=== PATIENT | female | born 1995 | race African-American/Black ===

== ENCOUNTER 2024-02-10 14:22 | Emergency (ER) | payer MEDICAID ==
[~2024-02-10] VITALS: Ht 152.4 cm; Wt 79.4 kg
[2024-02-10 15:07] VITALS: TEMP 98.6
[2024-02-10] MEDS ORDERED: PHENOBARBITAL SODIUM 130 MG/ML VIAL IV ONE (18:30)
[2024-02-10] MEDS ORDERED: ONDANSETRON HCL/PF 4 MG/2 ML VIAL ONE (18:36)
[2024-02-10] MEDS: ONDANSETRON HCL/PF - ER 4 MG/2 ML VIAL IV ONE (18:45)
[2024-02-10] MEDS: IV NS 0.9% 1,000 ML BAG IV ONE (18:45)
[2024-02-10] MEDS ORDERED: PHENOBARBITAL SODIUM 130 MG/ML VIAL ONE (18:51)
[2024-02-10] MEDS ORDERED: PHENOBARBITAL SODIUM 780 MG in IV NS 0.9% 100 ML IV ONE (19:00)
[2024-02-10] MEDS: PHENOBARBITAL SODIUM 780 MG in IV NS 0.9% 94 ML IV ONE (19:46)
[2024-02-10] MEDS ORDERED: CHLO25CA22 PO (20:40)
[2024-02-10] MEDS ORDERED: ONDA4TAB11 PO (20:40)
[2024-02-10 21:03] VITALS: BP 121/62; O2SAT 100
== END 2024-02-10 21:04 | disposition home or self-care (01) ==
LOC: ER 14:28
DX: F10.239 Alcohol dependence with withdrawal, unspecified (principal); R11.2 Nausea with vomiting, unspecified; Y90.9 Presence of alcohol in blood, level not specified
CPT/HCPCS: 99284; 96365; 96361; 96375; J2560; J2405 ×2; J7030 ×2; J7040; A4223

== ENCOUNTER 2024-02-24 16:22 | Emergency (ER) | payer MEDICAID ==
[~2024-02-24] VITALS: Ht 152.4 cm; Wt 68.0 kg
[~2024-02-24 16:22] MED LIST: CHLO25CA22 PO; ONDA4TAB11 PO
[2024-02-24 16:37] VITALS: TEMP 99
[2024-02-24] MEDS: NS 0.9% IV ONE (17:52)
[2024-02-24] MEDS: PHENOBARBITAL SODIUM IV ONE (17:52)
[2024-02-24 19:47] VITALS: BP 110/60; O2SAT 98
== END 2024-02-24 19:47 | disposition home or self-care (01) ==
LOC: ER 16:30
DX: F10.239 Alcohol dependence with withdrawal, unspecified (principal); F41.9 Anxiety disorder, unspecified; R25.1 Tremor, unspecified; Z79.899 Other long term (current) drug therapy
CPT/HCPCS: 99284; 96365; J2560; J7030; J7040

== ENCOUNTER 2024-03-17 12:08 | Emergency (ER) | payer MEDICAID ==
[~2024-03-17] VITALS: Ht 152.4 cm; Wt 66.7 kg
[2024-03-17] MEDS ORDERED: LORAZEPAM INJ 2 MG/ML VIAL ONE (12:28)
[2024-03-17] MEDS: IV NS 0.9% 1,000 ML BAG IV ONE (12:32)
[2024-03-17] MEDS: LORAZEPAM INJ 2 MG/ML VIAL IV ONE (12:32)
[2024-03-17 13:19] LABS: BASOPHILS % (AUTO) 0.6 % (0.0-2.0); EOSINOPHILS % (AUTO) 0.4 % (0.0-6.0); HEMATOCRIT 44 % (33-45); HEMOGLOBIN 14.1 g/dL (11.5-14.8); LYMPHOCYTES % (AUTO) 24.1 % (20.0-44.0); MEAN CORPUSCULAR HEMOGLOBIN 24 PG (26.0-33.0); MEAN CORPUSCULAR HGB CONC 32 g/dl (31.0-36.0); MEAN CORPUSCULAR VOLUME 74 fL (82-100); MONOCYTES # (AUTO) 0.4 K/uL (0.1-1.30); MONOCYTES % (AUTO) 9.7 % (2.0-12.0); NEUTROPHILS # (AUTO) 2.7 K/uL (1.8-8.9); NEUTROPHILS % (AUTO) 65.2 % (43.0-81.0); PLATELET COUNT (AUTO) 331 K/uL (150-450); RED CELL DISTRIBUTION WIDTH 19.4 % (11.5-15.0); WHITE BLOOD COUNT (AUTO) 4.1 K/uL (4.3-11.0)
[2024-03-17 13:22] LABS: CALCIUM, SERUM 9.8 mg/dL (8.5-10.1); POTASSIUM 4.2 mmol/L (3.5-5.1)
[2024-03-17 13:25] LABS: PREGNANCY TEST URINE QUAL NEGATIVE (NEGATIVE)
[2024-03-17] MEDS ORDERED: ONDA4TAB5 PO (13:42)
[2024-03-17 14:48] VITALS: BP 143/72; TEMP 98.4; O2SAT 99
== END 2024-03-17 14:48 | disposition home or self-care (01) ==
LOC: ER 12:08
DX: F10.129 Alcohol abuse with intoxication, unspecified (principal); E86.0 Dehydration; R10.2 Pelvic and perineal pain; Z79.899 Other long term (current) drug therapy; Z60.2 Problems related to living alone; Y90.0 Blood alcohol level of less than 20 mg/100 ml
CPT/HCPCS: 99284; 96374; 96361; 93005; 85025; 80048; 84703; 36415; J2060; J7040

== ENCOUNTER 2024-04-26 14:29 | Inpatient (IN) | payer MEDICAID ==
[~2024-04-26] VITALS: Ht 152.4 cm; Wt 52.2 kg
[~2024-04-26 14:29] MED LIST changes: +ONDA4TAB5 PO
[2024-04-26] MEDS ORDERED: LORAZEPAM INJ 2 MG/ML VIAL ONE (15:54)
[2024-04-26] MEDS ORDERED: ONDANSETRON HCL/PF 4 MG/2 ML VIAL ONE (15:55)
[2024-04-26] MEDS ORDERED: FAMOTIDINE/PF INJ 20 MG/2 ML VIAL IV ONE (15:55)
[2024-04-26 16:02] LABS: BASOPHILS # (AUTO) 0.1 K/uL (0.0-0.2); BASOPHILS % (AUTO) 1.4 % (0.0-2.0); EOSINOPHILS % (AUTO) 0.1 % (0.0-6.0); HEMATOCRIT 45 % (33-45); HEMOGLOBIN 14.1 g/dL (11.5-14.8); LYMPHOCYTES # (AUTO) 0.9 K/uL (0.8-4.8); LYMPHOCYTES % (AUTO) 10.4 % (20.0-44.0); MEAN CORPUSCULAR HEMOGLOBIN 24 PG (26.0-33.0); MEAN CORPUSCULAR HGB CONC 31 g/dl (31.0-36.0); MEAN CORPUSCULAR VOLUME 78 fL (82-100); MONOCYTES # (AUTO) 0.7 K/uL (0.1-1.30); MONOCYTES % (AUTO) 8.1 % (2.0-12.0); NEUTROPHILS # (AUTO) 6.6 K/uL (1.8-8.9); PLATELET COUNT (AUTO) 349 K/uL (150-450); RED CELL DISTRIBUTION WIDTH 18.8 % (11.5-15.0); WHITE BLOOD COUNT (AUTO) 8.3 K/uL (4.3-11.0)
[2024-04-26] MEDS: IV NS 0.9% 1,000 ML BAG IV ONE (16:03)
[2024-04-26] MEDS: ONDANSETRON HCL/PF 4 MG/2 ML VIAL IVP ONE (16:04)
[2024-04-26] MEDS: LORAZEPAM INJ 2 MG/ML VIAL IV ONE (16:05)
[2024-04-26] MEDS: FAMOTIDINE/PF INJ 20 MG/2 ML VIAL IV ONE (16:05)
[2024-04-26 16:10] LABS: CREATININE 1.3 mg/dL (0.6-1.3)
[2024-04-26 16:16] LABS: ALBUMIN 4.7 g/dL (3.4-5.0); BILIRUBIN,DIRECT 0.3 mg/dL (0.0-0.2); BILIRUBIN,TOTAL 0.6 mg/dL (0.2-1.0); TOTAL PROTEIN, SERUM 9.7 g/dL (6.4-8.2)
[2024-04-26] MEDS ORDERED: HYDR-500 PO (17:50)
[2024-04-26] MEDS ORDERED: SERT25TA PO (17:50)
[2024-04-26] MEDS ORDERED: MAGNESIUM HYDROXIDE 30 ML UDC PO PRN (18:00)
[2024-04-26] MEDS ORDERED: MAG HYDROX/AL HYDROX/SIMETH 30 ML UDC PO PRN (18:00)
[2024-04-26] MEDS ORDERED: Z GUARD REMEDY 4 OZ OINT TP PRN (18:00)
[2024-04-26] MEDS: Thiamine 100 MG in IV D5W 50 ML IV SCH (18:00)
[2024-04-26] MEDS ORDERED: MAG HYDROX/AL HYDROX/SIMETH 30 ML UDC ONE (18:05)
[2024-04-26] MEDS ORDERED: FOLIC ACID 1 MG TABLET ONE (18:06)
[2024-04-26] MEDS ORDERED: THIAMINE HCL 100 MG TABLET ONE (18:06)
[2024-04-26] MEDS ORDERED: LIDOCAINE VISCOUS 2% UD 15 ML UDC ONE (18:06)
[2024-04-26] MEDS: MAG HYDROX/AL HYDROX/SIMETH 30 ML UDC PO ONE (18:08)
[2024-04-26] MEDS: LIDOCAINE VISCOUS 2% UD 15 ML UDC MM ONE (18:08)
[2024-04-26] MEDS: FOLIC ACID 1 MG TABLET PO ONE (18:08)
[2024-04-26] MEDS: THIAMINE HCL 100 MG TABLET PO ONE (18:08)
[2024-04-26] MEDS ORDERED: PANTOPRAZOLE 40 MG VIAL ONE (18:53)
[2024-04-26] MEDS: PANTOPRAZOLE 40 MG VIAL IV SCH (18:59)
[2024-04-26] MEDS ORDERED: MORPHINE SULFATE INJ 4 MG/ML DISP.SYRIN ONE (21:28)
[2024-04-26] MEDS: MORPHINE SULFATE INJ 2 MG/ML DISP.SYRIN IV ONE (21:30)
[2024-04-26 23:00] VITALS: BP 126/56; TEMP 97.7; O2SAT 98
[2024-04-27] MEDS: IV NS 0.9% 1,000 ML IV PRN
[2024-04-27] MEDS: ONDANSETRON HCL/PF 4 MG/2 ML VIAL IVP PRN (00:01)
[2024-04-27] MEDS: FOLIC ACID 1 MG TABLET ONE (01:02)
[2024-04-27] MEDS: MORPHINE SULFATE INJ 2 MG/ML DISP.SYRIN IV PRN (01:29)
[2024-04-27 04:00] VITALS: BP 118/65; TEMP 97.7; O2SAT 100
[2024-04-27] MEDS: CHLORDIAZEPOXIDE HCL 25 MG CAPSULE PO PRN (04:53)
[2024-04-27 07:23] LABS: BASOPHILS % (AUTO) 0.1 % (0.0-2.0); HEMATOCRIT 43 % (33-45); HEMOGLOBIN 13.7 g/dL (11.5-14.8); LYMPHOCYTES # (AUTO) 0.4 K/uL (0.8-4.8); MEAN CORPUSCULAR HEMOGLOBIN 25 PG (26.0-33.0); MEAN CORPUSCULAR HGB CONC 32 g/dl (31.0-36.0); MEAN CORPUSCULAR VOLUME 79 fL (82-100); MONOCYTES # (AUTO) 0.8 K/uL (0.1-1.30); MONOCYTES % (AUTO) 7.5 % (2.0-12.0); NEUTROPHILS # (AUTO) 9.7 K/uL (1.8-8.9); NEUTROPHILS % (AUTO) 88.4 % (43.0-81.0); PLATELET COUNT (AUTO) 229 K/uL (150-450); RED CELL DISTRIBUTION WIDTH 18.9 % (11.5-15.0)
[2024-04-27 07:39] LABS: CALCIUM, SERUM 8.9 mg/dL (8.5-10.1); CARBON DIOXIDE 16 mmol/L (21-32); CHLORIDE 101 mmol/L (98-107); GLUCOSE 131 mg/dL (74-106); MAGNESIUM 1.7 mg/dL (1.8-2.4); PHOSPHORUS 2.8 mg/dL (2.5-4.9); POTASSIUM 4.6 mmol/L (3.5-5.1); SODIUM SERUM 136 mmol/L (136-145); UREA NITROGEN, BLOOD 6 mg/dL (7-18)
[2024-04-27 07:43] LABS: LIPASE > 375 U/L (16-77)
[2024-04-27 08:00] VITALS: BP 135/85; TEMP 97.7; O2SAT 97
[2024-04-27] MEDS: Magnesium 1GM/D5W 100ML PREMIX 100 ML IV SCH (10:17)
[2024-04-27] MEDS ORDERED: Magnesium 1GM/D5W 100ML PREMIX 100 ML IV SCH (11:00)
[2024-04-27 16:00] VITALS: BP 123/92; TEMP 97.9; O2SAT 100
[2024-04-27] MEDS: THIAMINE HCL 100 MG TABLET PO SCH (17:24)
[2024-04-27 20:00] VITALS: BP 132/79; TEMP 99; O2SAT 100
[2024-04-27] MEDS: ACETAMINOPHEN 325 MG TABLET PO PRN (22:13)
== END 2024-04-27 23:58 | disposition left against medical advice (07) | DRG 282 ==
LOC: ER 14:36 → MEDSG1 21:44
PROVIDERS: ADMIT Nurse Practitioner Acute Care; ATTEND Nurse Practitioner Acute Care
DX: K85.90 Acute pancreatitis without necrosis or infection, unspecified (principal); E87.29 Other acidosis; F19.10 Other psychoactive substance abuse, uncomplicated; R74.01 Elevation of levels of liver transaminase levels; F10.20 Alcohol dependence, uncomplicated
CPT/HCPCS: 36415; 80048-TC; 80076-TC; 83690-TC; 83735-TC; 84100-TC; 84702-TC; 85025-TC; A4223; G0378; J2060; J2270; J2405; J2470; J3411; J3475; J3490; J7030; J7060

== ENCOUNTER → 2024-04-29 | Emergency (ER) | payer MEDICAID ==
[~2024-04-29] VITALS: Ht 152.4 cm; Wt 61.7 kg
[~2024-04-29] MED LIST changes: +ACETAMINOPHEN ES 500 MG TABLET ONE; +CEPH500C2 PO; -CHLO25CA22 PO; +FAMOTIDINE/PF INJ 20 MG/2 ML VIAL IV ONE; +HYDR-500 PO; +MAG HYDROX/AL HYDROX/SIMETH 30 ML UDC ONE; +MORPHINE SULFATE INJ 4 MG/ML DISP.SYRIN ONE; -ONDA4TAB5 PO; +ONDANSETRON HCL/PF 4 MG/2 ML VIAL ONE; +SERT25TA PO; +TRAM50TA2 PO
[2024-04-29] MEDS: MAG HYDROX/AL HYDROX/SIMETH 30 ML UDC PO ONE (10:03)
[2024-04-29] MEDS: ACETAMINOPHEN ES 500 MG TABLET PO ONE (10:03)
[2024-04-29] MEDS: IV NS 0.9% 1,000 ML BAG IV ONE ×2 (10:10→11:00)
[2024-04-29] MEDS: ONDANSETRON HCL/PF 4 MG/2 ML VIAL IVP ONE (10:21)
[2024-04-29] MEDS: FAMOTIDINE/PF INJ 20 MG/2 ML VIAL IV ONE (10:21)
[2024-04-29 10:41] LABS: BASOPHILS % (AUTO) 0.3 % (0.0-2.0); HEMATOCRIT 39 % (33-45); HEMOGLOBIN 12.3 g/dL (11.5-14.8); LYMPHOCYTES # (AUTO) 0.8 K/uL (0.8-4.8); LYMPHOCYTES % (AUTO) 8.7 % (20.0-44.0); MEAN CORPUSCULAR HEMOGLOBIN 25 PG (26.0-33.0); MEAN CORPUSCULAR HGB CONC 32 g/dl (31.0-36.0); MEAN CORPUSCULAR VOLUME 78 fL (82-100); MONOCYTES # (AUTO) 0.8 K/uL (0.1-1.30); MONOCYTES % (AUTO) 8.4 % (2.0-12.0); NEUTROPHILS # (AUTO) 7.6 K/uL (1.8-8.9); NEUTROPHILS % (AUTO) 82.6 % (43.0-81.0); PLATELET COUNT (AUTO) 141 K/uL (150-450); RED BLOOD CELL COUNT(AUTO) 4.97 MIL/uL (4.0-5.2); RED CELL DISTRIBUTION WIDTH 18.4 % (11.5-15.0); WHITE BLOOD COUNT (AUTO) 9.2 K/uL (4.3-11.0)
[2024-04-29 10:47] LABS: APPEARANCE,URINE CLEAR (CLEAR); BILIRUBIN,URINE 1+ (NEGATIVE); BLOOD, URINE 2+ Ery/uL (NEGATIVE); COLOR,URINE YELLOW (YELLOW); KETONES,URINE 3+ mg/dL (NEGATIVE); LEUKOCYTE ESTERASE ,URINE NEGATIVE (NEGATIVE); NITRITE, URINE POSITIVE (NEGATIVE); PH,URINE 6.5 (5.0-8.0); PROTEIN,URINE 2+ mg/dl (NEGATIVE); UGLUCOSE NEGATIVE (NEGATIVE)
[2024-04-29 10:58] LABS: CALCIUM, SERUM 9.1 mg/dL (8.5-10.1); CARBON DIOXIDE 21 mmol/L (21-32); CHLORIDE 96 mmol/L (98-107); CREATININE 0.7 mg/dL (0.6-1.3); GLUCOSE 118 mg/dL (74-106); POTASSIUM 3.2 mmol/L (3.5-5.1); SODIUM SERUM 135 mmol/L (136-145); UREA NITROGEN, BLOOD 5 mg/dL (7-18)
[2024-04-29 11:01] LABS: ADD URINE CULTURE YES; BACTERIA,URINE Many /HPF (None Seen); HYALINE CASTS, URINE Few /LPF (None Seen); MUCUS,URINE Many /LPF (None Seen); TRICHOMONAS,URINE None Seen /HPF (None Seen); YEAST,URINE None Seen /HPF (None Seen)
[2024-04-29 11:02] LABS: PREGNANCY TEST URINE QUAL NEGATIVE (NEGATIVE)
[2024-04-29 11:06] LABS: ALANINE AMINOTRANSFERASE 73 U/L (12-78); ALBUMIN 3.2 g/dL (3.4-5.0); ALKALINE PHOSPHATASE 74 U/L (46-116); ASPARTATE AMINOTRANSFERASE 71 U/L (15-37); BILIRUBIN,DIRECT 0.5 mg/dL (0.0-0.2); BILIRUBIN,TOTAL 0.9 mg/dL (0.2-1.0); TOTAL PROTEIN, SERUM 7.8 g/dL (6.4-8.2)
[2024-04-29 11:13] LABS: LIPASE > 375 U/L (16-77)
[2024-04-29 11:22] LABS: ANISOCYTOSIS 1+; HYPOCHROMASIA 1+; LYMPHOCYTES % (MANUAL) 11 % (16-48); MONOCYTES % (MANUAL) 9 % (0-11.0); NEUTROPHILS % (MANUAL) 80 (42-76); PLATELET ESTIMATE DECREASED
[2024-04-29] MEDS: CEFTRIAXONE 1GM BAG (ER ONLY) 1 GM/50 ML PIGGYBACK IV ONE (11:45)
[2024-04-29] MEDS: ONDANSETRON HCL/PF - ER 4 MG/2 ML VIAL IV ONE (11:46)
[2024-04-29] MEDS: MORPHINE SULFATE INJ 2 MG/ML DISP.SYRIN IV ONE (11:55)
[2024-04-29 13:07] VITALS: BP 120/89; TEMP 98.2; O2SAT 98
== END | disposition home or self-care (01) ==
LOC: ER 08:29
DX: K85.20 Alcohol induced acute pancreatitis without necrosis or infection (principal); R10.13 Epigastric pain; M54.9 Dorsalgia, unspecified; R11.2 Nausea with vomiting, unspecified; N39.0 Urinary tract infection, site not specified; R31.9 Hematuria, unspecified; F10.10 Alcohol abuse, uncomplicated; F41.9 Anxiety disorder, unspecified; F19.10 Other psychoactive substance abuse, uncomplicated; Z60.2 Problems related to living alone; Y90.9 Presence of alcohol in blood, level not specified
CPT/HCPCS: 99284; 96365; 96361 ×2; 96375 ×3; 96376; 85025; 80048; 87086; 83690; 80076; 84703; 81001; 36415; 85007; J2270; J3490; J2405 ×2; J0696

== ENCOUNTER 2025-03-18 23:28 | Emergency (ER) | payer MEDICAID, OTHER ==
[~2025-03-18] VITALS: Ht 162.6 cm; Wt 70.3 kg
[~2025-03-18 23:28] MED LIST changes: -ACETAMINOPHEN ES 500 MG TABLET ONE; -FAMOTIDINE/PF INJ 20 MG/2 ML VIAL IV ONE; -MAG HYDROX/AL HYDROX/SIMETH 30 ML UDC ONE; -MORPHINE SULFATE INJ 4 MG/ML DISP.SYRIN ONE; -ONDANSETRON HCL/PF 4 MG/2 ML VIAL ONE
[2025-03-19 01:15] VITALS: BP 120/70; TEMP 99.1; O2SAT 98
== END 2025-03-19 01:16 | disposition left against medical advice (07) ==
LOC: EDUNIT# 23:28 → ER 23:31
DX: F10.939 Alcohol use, unspecified with withdrawal, unspecified (principal); R11.2 Nausea with vomiting, unspecified; F41.9 Anxiety disorder, unspecified; Z79.899 Other long term (current) drug therapy; Z87.19 Personal history of other diseases of the digestive system; Z60.2 Problems related to living alone; Y90.9 Presence of alcohol in blood, level not specified